=== PATIENT | male | born 1950 | race Caucasian/White ===

== ENCOUNTER 2016-12-02 08:26 | Day surgery (SDC) | payer MEDICARE ==
[~2016-12-02 08:26] MED LIST: CYCLOPENTOLATE 1% OPHTH DROPS 2 ML ONE; KETOROLAC 0.45% OPHTH DROPS ONE; PHENYLEPHRINE 2.5% OPHTH 2 ML DROPS ONE; PROPARACAINE 0.5% OPHTH DROPS 15 ML ONE
[2016-12-02] MEDS ORDERED: LACTATED RINGERS 500 ML IV ONE (08:57)
[2016-12-02] MEDS ORDERED: KETOROLAC 0.45% OPHTH DROPS OPTH ONE (09:05)
[2016-12-02] MEDS ORDERED: PROPARACAINE 0.5% OPHTH DROPS 15 ML OPTH ONE ×2 (09:05→10:22)
[2016-12-02] MEDS ORDERED: PHENYLEPHRINE 2.5% OPHTH 2 ML DROPS OPTH ONE (09:05)
[2016-12-02] MEDS ORDERED: CYCLOPENTOLATE 1% OPHTH DROPS 2 ML OPTH ONE (09:05)
[2016-12-02] MEDS ORDERED: EPINEPHrine 1 MG/ML AMP IVP ONE (10:21)
[2016-12-02] MEDS ORDERED: BRIMONIDINE 0.2% OPHTH DROPS 5 ML OPTH ONE (10:21)
[2016-12-02] MEDS ORDERED: TIMOLOL 0.5% OPHTH DROPS OPTH ONE (10:22)
[2016-12-02] MEDS ORDERED: BSS/LIDOCAINE/EPINEPHRINE 1 ML SYRINGE IO ONE ×2 (10:22)
[2016-12-02] MEDS ORDERED: TRIAMCIN/MOXIFLOX/VANCO 1 ML VIAL IO ONE ×2 (10:22)
[2016-12-02] MEDS ORDERED: CHONDR SULF/HYALURONATE SYRINGE IO ONE (10:22)
[2016-12-02] MEDS ORDERED: MIDAZOLAM 2 MG/2 ML VIAL IVP ONE (10:33)
[2016-12-02] MEDS ORDERED: PROPOFOL 200 MG/20 ML VIAL IVP ONE (10:33)
[2016-12-02] MEDS ORDERED: LIDOCAINE-MPF 2% 5 ML VIAL IM ONE (10:33)
[2016-12-02 11:07] VITALS: BP 138/68
--- NOTE | 2016-12-03 03:33 | OPERATIVE REPORT ---
DATE OF SURGERY: 12/02/2016 00:00:00 PREOPERATIVE DIAGNOSIS: Visually significant cataract left eye. This is his first cataract surgery. POSTOPERATIVE DIAGNOSIS: Visually significant cataract right eye. This is his first cataract surgery . NAME OF PROCEDURE: Phacoemulsification posterior chamber intraocular lens implant, left eye. SURGEON: Gumaro Chowdhury M.D. ANESTHESIA: Monitored anesthesia care. COMPLICATIONS: None. OPERATIVE INDICATIONS: This is a 66-year-old man with progressive vision loss in the left eye due to 2+ nuclear sclerotic and 2-3+ posterior subcapsular cataract. Best corrected visual acuity was 20/50 with glare to 20/160 in the left eye. INDICATIONS FOR SURGERY: Overall decrease in vision. Difficulty seeing street signs, difficulty drivi ng in low light or at night and difficulty with glare of bright lights in any situation. He was conse nted at length concerning risks and benefits of cataract surgery after which he expressed a desire to proceed with surgery. OPERATIVE PROCEDURE: The patient was taken into OR #2 and placed under monitored anesthesia care. A s urgical timeout was conducted confirming correct patient, correct procedure and correct surgical site . He was placed under the LenSx laser and his eye docked with a laser interface. The laser performed a capsulotomy and lens softening, phaco-wounds and ocular keratotomy incisions. He was then moved to the operating microscope, given topical anesthesia and then prepped and draped in the usual sterile f ashion. The eye was entered at the 6 and 3 o'clock positions. Intracameral Shugarcaine was injected i nto the anterior chamber followed by Viscoat. The capsulorhexis flap created by the LenSx laser was r emoved from the anterior chamber. The nucleus was hydrodissected and phacoemulsified. The cortex was evacuated using automated infusion aspiration. Provisc was injected in the capsular bag and a 22.0 Di opter multifocal intraocular lens was inserted into the bag. Approximately 0.8 mL of a mixture of tri amcinolone, moxifloxacin, vancomycin was injected in the subconjunctival and superior quadrant for in fection and inflammation prophylaxis. I/A was used to evacuate the viscoelastic materials. The eye wa s inflated to a physiologic pressure using balanced salt solution and found to be watertight. The pat ient was taken from the operating room in good condition and given postoperative instructions. JOB #: [id number] EXT JOB #:[id number]
== END 2016-12-02 08:27 | disposition home or self-care (01) ==
LOC: SDS 08:26
PROVIDERS: ATTEND Ophthalmology
PROC: 08RK3JZ Replacement of Left Lens with Synthetic Substitute, Percutaneous Approach (ICD-10-PCS; principal; 2016-12-02 09:30)
DX: H25.812 Combined forms of age-related cataract, left eye (principal); I10 Essential (primary) hypertension
CPT/HCPCS: 66984; A9270; J3490; V2632

== ENCOUNTER 2016-12-03 10:00 | Outpatient (CLI) | payer MEDICARE ==
--- NOTE | 2016-12-03 12:57 | XRAY Report ---
THREE-VIEW LEFT ANKLE: 12/03/2016 CLINICAL INDICATION: Pain. FINDINGS: AP, lateral, oblique views of the left ankle demonstrate no evidence of fracture or disloc ation. The joint spaces are preserved. No radiopaque foreign body is seen in the soft tissues. IMPRESSION: NO EVIDENCE OF FRACTURE. JOB #: [id number] EXT JOB #:[id number]
== END 2016-12-03 10:01 | disposition home or self-care (01) ==
LOC: DI 10:00
PROVIDERS: ATTEND Orthopaedic Surgery
DX: M25.572 Pain in left ankle and joints of left foot (principal)

== ENCOUNTER 2016-12-30 07:52 | Day surgery (SDC) | payer MEDICARE ==
[~2016-12-30 07:52] MED LIST changes: +BRIMONIDINE 0.2% OPHTH DROPS 5 ML ONE; +TIMOLOL 0.5% OPHTH DROPS ONE
[2016-12-30] MEDS ORDERED: LACTATED RINGERS 1,000 ML IV ONE (08:01)
[2016-12-30] MEDS ORDERED: PHENYLEPHRINE 2.5% OPHTH 2 ML DROPS OPTH ONE (08:13)
[2016-12-30] MEDS ORDERED: PROPARACAINE 0.5% OPHTH DROPS 15 ML OPTH ONE ×2 (08:13→09:00)
[2016-12-30] MEDS ORDERED: CYCLOPENTOLATE 1% OPHTH DROPS 2 ML OPTH ONE (08:13)
[2016-12-30] MEDS ORDERED: KETOROLAC 0.45% OPHTH DROPS OPTH ONE (08:13)
[2016-12-30] MEDS ORDERED: BRIMONIDINE 0.2% OPHTH DROPS 5 ML OPTH ONE (09:00)
[2016-12-30] MEDS ORDERED: TRIAMCIN/MOXIFLOX/VANCO 1 ML VIAL IO ONE ×2 (09:00)
[2016-12-30] MEDS ORDERED: CHONDR SULF/HYALURONATE SYRINGE IO ONE (09:00)
[2016-12-30] MEDS ORDERED: BSS/LIDOCAINE/EPINEPHRINE 1 ML SYRINGE IO ONE ×2 (09:00)
[2016-12-30] MEDS ORDERED: EPINEPHrine 1 MG/ML AMP IVP ONE (09:00)
[2016-12-30] MEDS ORDERED: TIMOLOL 0.5% OPHTH DROPS OPTH ONE (09:00)
[2016-12-30] MEDS ORDERED: MIDAZOLAM 2 MG/2 ML VIAL IVP ONE (09:05)
[2016-12-30 09:43] VITALS: BP 116/72
--- NOTE | 2016-12-30 11:05 | OPERATIVE REPORT ---
DATE OF SURGERY: 12/30/2016 00:00:00 PREOPERATIVE DIAGNOSIS: Visually significant cataract, right eye. Cataract surgery was performed on h is left eye on 12/02/2016. POSTOPERATIVE DIAGNOSIS: Visually significant cataract, right eye. Cataract surgery was performed on his left eye on 12/02/2016. NAME OF PROCEDURE: Phacoemulsification posterior chamber intraocular lens implant, right eye. SURGEON: Gumaro Chowdhury MD. ANESTHESIA: Monitored anesthesia care. COMPLICATIONS: None. OPERATIVE INDICATIONS: The patient is a 66-year-old man with progressive vision loss in the right eye due to 2+ nuclear sclerotic cataract. Best corrected visual acuity was 20/20 with glare to 20/30 in the right eye. Indications for surgery were overall decrease vision, difficulty seeing words on a com puter screen, difficulty reading, difficulty seeing words and game scores on TV, difficulty seeing st reet signs, difficulty driving in low light or at night, difficulty driving at night because of headl ights from other vehicles, difficulty tracking a golf ball, and also he has been having some difficul ty adjusting to having a multifocal in his left eye and a non-multifocal crystalline lens in his right eye. He was consented at length concerning the risks and benefits of cataract surgery, aft er which he expressed a desire to proceed with surgery. OPERATIVE PROCEDURE: The patient was taken into OR #2 and placed under monitored anesthesia care. A s urgical time-out was conducted confirming the correct patient, correct procedure and correct surgical site. He was placed under the LenSx laser and his eye docked to the laser interface. The laser perfo rmed the capsulotomy, lens softening, phaco wounds, and arcuate keratotomy incisions. He was then mov ed to the operating microscope, given topical anesthesia, and then prepped and draped in the usual st erile fashion. The eye was entered at the 12 and 9 o'clock positions. Intracameral Shugarcaine was in jected into the anterior chamber, followed by Viscoat. Capsulorrhexis flap created by the LenSx laser was removed from the anterior chamber. The nucleus was hydrodissected and phacoemulsified. The spencer x was evacuated using automated infusion aspiration. Provisc was injected in the capsular bag, and a 22.0-diopter multifocal intraocular lens was inserted into the bag. Approximately 0.8 mL of a mixture of triamcinolone, moxifloxacin, and vancomycin was injected subconjunctivally in superior quadrant f or infection and inflammation prophylaxis. I/A was used to evacuate the viscoelastic materials. The e ye was inflated to a physiologic pressure using balanced salt solution and found to be watertight. Th e patient was taken from the operating room in good condition, given postoperative instructions. JOB #: [id number] EXT JOB #:[id number]
== END 2016-12-30 07:53 | disposition home or self-care (01) ==
LOC: SDS 07:52
PROVIDERS: ATTEND Ophthalmology
PROC: 08RJ3JZ Replacement of Right Lens with Synthetic Substitute, Percutaneous Approach (ICD-10-PCS; principal; 2016-12-30 09:00)
DX: H25.11 Age-related nuclear cataract, right eye (principal); I10 Essential (primary) hypertension
CPT/HCPCS: 66984; A9270; J3490; J7120; V2632; V2788

== ENCOUNTER 2017-06-27 09:13 | Outpatient (CLI) | payer MEDICARE ==
--- NOTE | 2017-06-27 12:20 | Ultrasound Report ---
AORTA SCREEN: 06/27/2017 CLINICAL INDICATION: Screening. TECHNIQUE: Real-time sonographic imaging was performed by the director social through the aorta. Multiple assistance representative static images were saved for review. FINDINGS: The abdominal aorta is normal in caliber, measuring 2.2 cm proximally , 1.8 cm in the mid portion, and 1.8 cm distally. The iliacs are normal in caliber. No free fluid is present. IMPRESSION: NO EVIDENCE OF ABDOMINAL AORTIC ANEURYSM. TD: 06/27/2017 12:18 MTDD
== END 2017-06-27 09:14 | disposition home or self-care (01) ==
LOC: DI 09:13
PROVIDERS: ATTEND Registered Nurse
DX: Z13.6 Encounter for screening for cardiovascular disorders (principal)
CPT/HCPCS: 76706

== ENCOUNTER 2018-03-22 15:53 | Outpatient (CLI) | payer MEDICARE | END 2018-03-22 15:54 | disposition critical access hospital (66) | LOC: EMS 15:53 | PROVIDERS: ATTEND Surgery | DX: S49.92XA Unspecified injury of left shoulder and upper arm, initial encounter (principal); W17.89XA Other fall from one level to another, initial encounter; Y93.H3 Activity, building and construction; Y92.008 Other place in unspecified non-institutional (private) residence as the place of occurrence of the external cause | CPT/HCPCS: A0425; A0427 ==

== ENCOUNTER 2018-03-22 16:41 | Emergency (ER) | payer MEDICARE ==
--- NOTE | 2018-03-22 17:01 | ED Physician Documentation ---
PD HPI Fall - Stated complaint Stated Complaint: FALL FROM LADDDER - Chief complaint Chief Complaint: Trauma Hd/Nk - History obtained from History obtained from: Patient, EMS - History of Present Illness Mechanism of injury: Slipped (fell about 9 feet from a loft and struck head while falling, then landed to left shoulder, with considerable pain in shoulder.) Fall distance: 5 to 10ft Timing - onset: Today Injury(ies) location: Head, Left Uppper Extremity (shoulder). No: Neck, Chest, Abdomen Associated symptoms: No: LOC, AMS, Amnesia, Neck pain, Weakness, Paresthesias, Nausea / vomiting Symptoms improve with: No: Rest Worsens with: Palpation Contributing factors: No: Anticoagulated Similar symptoms before: Has not had sx before Recently seen: Not recently seen Review of Systems Constitutional: denies: Fever Nose: denies: Rhinorrhea / runny nose, Congestion Throat: denies: Sore throat Cardiac: denies: Chest pain / pressure, Palpitations Respiratory: denies: Dyspnea, Cough, Wheezing GI: denies: Abdominal Pain, Nausea, Vomiting, Diarrhea Musculoskeletal: denies: Neck pain, Back pain Neurologic: denies: Focal weakness, Numbness, Difficulty speaking PD PAST MEDICAL HISTORY - Past Medical History Cardiovascular: Hypertension Respiratory: None Endocrine/Autoimmune: None GI: None : None HEENT: Chronic vision loss Psych: None Musculoskeletal: None Derm: None - Past Surgical History General: Appendectomy, Colonoscopy HEENT: Tonsil/Adenoidectomy - Present Medications Home Medications: Ambulatory Orders Medication Instructions Recorded Confirmed Hydrochlorothiazide 12.5 mg PO DAILY 12/01/16 12/30/16 Hydrocodone/Acetaminophen [[place] 1 each PO Q6H PRN #20 tablet 03/22/18 5-325 Tablet] - Allergies Allergies/Adverse Reactions: Allergies Allergy/AdvReac Type Severity Reaction Status Date / Time No Known Drug Allergies Allergy Verified 03/22/18 16:49 PD ED PE NORMAL - Vitals Vital signs reviewed: Yes - General General: Alert and oriented X 3, Well developed/nourished, Other (considerable pain with any slight shoulder movement, and hurts moderately even with holding it still. ) - HEENT HEENT: PERRL, EOMI, Other (mild tenderness back of head. ) - Neck Neck: Supple, no meningeal sign, No bony TTP, No adenopathy - Cardiac Cardiac: RRR, No murmur - Respiratory Respiratory: Clear bilaterally - Abdomen Abdomen: Soft, Non tender - Back Back: No spinal TTP - Derm Derm: Normal color, Warm and dry - Extremities Extremities: Other (left shoulder with obvious anterior dislocation. Normal co murray and pulses distally. ) - Neuro Neuro: Alert and oriented X 3, piping drafter 2-12 intact, No motor deficit, No sensory deficit, Normal speech Eye Opening: Spontaneous Motor: Obeys Commands Verbal: Oriented GCS Score: 15 Results - Vitals Vitals: Oxygen O2 Source Room air Procedures - Reduction Body part reduced: Left, Shoulder Fracture or dislocation: Fracture dislocation Anesthesia: Dilaudid, Propofol Shoulder reduction technique: [place] / ext rotation Reduction aftercare: NV intact, Xray confirms reduction, Alignment improved, Sling, Patient tolerated well PD MEDICAL DECISION MAKING - ED course Complexity details: reviewed results, re-evaluated patient, considered differential, d/w patient Departure - Departure Disposition: 01 Home, Self Care Clinical Impression: Accidental fall Qualifiers: Encounter type: initial encounter Qualified Code(s): W19.XXXA - Unspecified fall, initial encounter Shoulder dislocation Qualifiers: Encounter type: initial encounter Laterality: left Qualified Code(s): S43.005A - Unspecified dislocation of left shoulder joint, initial encounter Head contusion Qualifiers: Encounter type: initial encounter Contusion of head detail: scalp Qualified Code(s): S00.03XA - Contusion of scalp, initial encounter Condition: Stable Record reviewed to determine appropriate education?: Yes Instructions: ED Dislocation Shoulder Redu Follow-Up: Rylee High ARNP [Primary Care Provider] - [facility] [Provider Group] Prescriptions: Hydrocodone/Acetaminophen [[place] 5-325 Tablet] 1 each PO Q6H PRN #20 tablet PRN Reason: Pain Comments: Use a sling for support of the shoulder. Minimal range of motion of the shoulder. No overhead reaching push pull or lifting for a month. Follow-up with orthopedics in about a week, call tomorrow for an appointment. Use some ibuprofen or naproxen 2-3 times daily for the next 7-10 days. Add Tylenol or hydrocodone if needed for pains. Discharge Date/Time: 03/22/18 19:54
[2018-03-22] MEDS ORDERED: SODIUM CHLORIDE 0.9% 1,000 ML IV ONE (17:16)
[2018-03-22] MEDS ORDERED: KETOROLAC 60 MG/2 ML VIAL IVP STA (17:16)
[2018-03-22] MEDS ORDERED: MORPHINE 10 MG/ML VIAL IVP STA (17:16)
[2018-03-22] MEDS ORDERED: PROPOFOL 200 MG/20 ML VIAL IVP STA (17:17)
--- NOTE | 2018-03-22 17:18 | XRAY Report ---
Reason: fall trauma Procedure Date: 03/22/2018 Accession Number: [id number] / [id number] Procedure: XR - Shoulder 3 View LT CPT Code: FULL RESULT: EXAM: LEFT SHOULDER RADIOGRAPHY EXAM DATE: 03/22/2018 04:51 PM. CLINICAL HISTORY: Fall trauma. COMPARISON: None. TECHNIQUE: 3 views. FINDINGS IMPRESSION: There is anterior inferior dislocation of the left humerus relative to the glenoid with a likely Hill-Sachs impaction fracture of the humeral head. The osseous structures are otherwise unremarkable. The acromioclavicular joint is preserved. RADIA
[2018-03-22] MEDS ORDERED: MORPHINE 2 MG/ML CARPUJECT IVP STA (17:42)
[2018-03-22] MEDS ORDERED: LORazepam 2 MG/ML VIAL IVP STA (17:43)
--- NOTE | 2018-03-22 19:14 | XRAY Report ---
Reason: post reduction Procedure Date: 03/22/2018 Accession Number: [id number] / [id number] Procedure: XR - Shoulder 2 View LT CPT Code: FULL RESULT: EXAM: LEFT SHOULDER RADIOGRAPHY EXAM DATE: 03/22/2018 06:55 PM. CLINICAL HISTORY: Post reduction. COMPARISON: Prior same day exam.. TECHNIQUE: 2 views. FINDINGS: Bones: Hill-Sachs impaction fracture of the humeral head. Joints: Interval reduction of a shoulder dislocation. Soft tissues: The visualized hemithorax is unremarkable. No soft tissue swelling. IMPRESSION: Interval reduction of shoulder dislocation. Hill-Sachs fracture. RADIA
[2018-03-22 19:53] VITALS: BP 160/98
== END 2018-03-22 19:54 | disposition home or self-care (01) ==
LOC: EDUNIT# → ED 16:41
DX: S43.005A Unspecified dislocation of left shoulder joint, initial encounter (principal); S00.03XA Contusion of scalp, initial encounter; W11.XXXA Fall on and from ladder, initial encounter; I10 Essential (primary) hypertension
CPT/HCPCS: 23650; 73030; 94770; 96361; 96374; 96375; 99283; 99284; J2060

== ENCOUNTER 2018-09-29 12:49 | Outpatient (CLI) | payer MEDICARE ==
--- NOTE | 2018-10-02 15:09 | CT Report ---
Reason: OTHER NONSPECIFIC ABNORMAL FINDING OF LUNG FIELD Procedure Date: 09/29/2018 Accession Number: [id number] / [id number] Procedure: CT - CHEST WO CPT Code: FULL RESULT: EXAM: CT CHEST EXAM DATE: 09/29/2018 01:00 PM. CLINICAL HISTORY: Lung nodules. COMPARISONS: None. TECHNIQUE: Routine helical CT imaging was performed through the chest. IV contrast: None. Reconstructions: Coronal and sagittal. In accordance with CT protocol optimization, one or more of the following dose reduction techniques were utilized for this exam: automated exposure control, adjustment of mA and/or KV based on patient size, or use of iterative reconstructive technique. FINDINGS: Lungs/Pleura: There is no consolidation or effusion. There is a 0.2 cm pulmonary nodule within the left upper lobe (image 31 series 4). There is a 0.3 cm nodular density within the right middle lobe (image 36). There is no evidence of subpleural reticulation or architectural distortion. No central airway abnormalities. No pneumothorax. Mediastinum: Normal. No adenopathy or masses. The heart and great vessels are normal. Bones: There is a remote, partially visualized fracture of the superior endplate of the L2 vertebral body. No acute bony abnormalities are seen. Visualized Abdomen: Unremarkable. Other: None. IMPRESSION: 1. There are several subcentimeter pulmonary nodules. The largest measures 0.3 cm. If the patient is at high risk for lung cancer, interval chest CT follow-up in 12 months could be considered. If the patient is not at high risk for lung cancer, interval chest CT follow-up is not indicated. 2. No acute pulmonary CT process. 3. Normal heart size. Recommend follow-up of the described nodule(s) according to the following guidelines: Fleischner Society Recommendations 2017 MacMahon et al. Radiology 2017 Solid Nodules-Low Risk Patients: <6 mm (single or multiple) - No routine follow-up* 6-8 mm (single) -CT at 6-12 months, then consider CT at 18-24 months 6-8mm (multiple) -CT at 3-6 months, then consider at CT 18-24 months >8 mm (single) -Consider CT, PET/CT, or tissue sampling at 3 months >8 mm (multiple) -CT at 3-6 months, then consider CT at 18-24 months Solid Nodules-High Risk Patients: <6 mm (single or multiple) -Optional CT at 12 months* 6-8 mm (single) -CT at 6-12 months, then CT at 18-24 months 6-8mm (multiple) -CT at 3-6 months, then CT at 18-24 months >8 mm (single) -Consider CT, PET/CT, or tissue sampling at 3 months >8 mm (multiple) -CT at 3-6 months, then at 18-24 months *Nodules < 6mm do not require routine follow-up, but suspicious nodule morphology, upper lobe location, or both may warrant 12 month follow-up Subsolid nodules: <6 mm (single, GG or part solid) -No routine follow-up >=6 mm (single GG) -CT at 6-12 months to confirm, then CT q2 years until 5 years >=6 mm (single part solid) -CT at 3-6 months to confirm, if unchanged and solid <6mm, annual CT for 5 years <6 mm (multiple GG or part solid) -CT at 3-6 months. If stable, consider CT at 2 and 4 years >=6 mm (multiple GG or part solid) -CT at 3-6 months. Subsequent management based on most suspicious nodule(s). Consider follow-up at 2 and 4 years for certain suspicious nodules <6mm. If solid component develops or growth, consider resection. RADIA
== END 2018-09-29 12:50 | disposition home or self-care (01) ==
LOC: DI 12:49
PROVIDERS: ATTEND Registered Nurse
DX: R91.8 Other nonspecific abnormal finding of lung field (principal)
CPT/HCPCS: 71250

== ENCOUNTER 2023-03-02 12:26 | Outpatient (CLI) | payer MEDICARE ==
--- NOTE | 2023-03-02 18:20 | XRAY Report ---
PROCEDURE: Knee 3 View BILAT INDICATIONS: PAIN OF BILATERAL KNEE JOINTS TECHNIQUE: 3 views of the bilateral knee(s) were acquired. COMPARISON: None. FINDINGS: Bones: No fractures or dislocations. No suspicious bony lesions. Mild bilateral degenerative pang ge. Surface irregularity of the right medial femoral condyle. Mild medial compartment joint space los s bilaterally. Soft tissues: Trace knee joint effusion bilaterally. No suspicious soft tissue calcifications or mas ses. IMPRESSION: Mild bilateral degenerative change. No acute bony abnormality. Reviewed by: Zhen Kelley MD on 03/02/2023 6:19 PM PDT Approved by: Zhen Kelley MD on 03/02/2023 6:19 PM PDT Station ID: [id number]
--- NOTE | 2023-03-02 18:21 | XRAY Report ---
PROCEDURE: Hips 2V BILAT INDICATIONS: HIP PAIN TECHNIQUE: AP pelvis and bilateral frog-leg lateral views of the hips were acquired. COMPARISON: None. FINDINGS: Bones: No fractures or dislocations. No suspicious bony lesions. Mild bilateral hip degenerative change. Soft tissues: No suspicious soft tissue calcifications or masses. IMPRESSION: No acute bony abnormality. Mild bilateral hip degenerative change. Reviewed by: Zhen Kelley MD on 03/02/2023 6:20 PM PDT Approved by: Zhen Kelley MD on 03/02/2023 6:20 PM PDT Station ID: [id number]
== END 2023-03-02 12:27 | disposition home or self-care (01) ==
LOC: DI.S 12:26
PROVIDERS: ATTEND Registered Nurse
DX: M16.0 Bilateral primary osteoarthritis of hip (principal); M17.0 Bilateral primary osteoarthritis of knee